=== PATIENT | male | born 1980 | race Caucasian/White ===

== ENCOUNTER 2017-03-29 00:46 | Emergency (ER) | payer SELFPAY ==
[~2017-03-29] VITALS: Ht 190.5 cm; Wt 154.5 kg
[~2017-03-29 00:46] MED LIST: HYDR-569 PO
[2017-03-29 00:53] VITALS: BP 175/111
[2017-03-29] MEDS ORDERED: HYDROcodone/acetaminophen 10/325mg tab PO ONE (01:20)
[2017-03-29] MEDS ORDERED: penicillin V potassium 500mg tablet PO ONE (01:20)
[2017-03-29] MEDS ORDERED: ibuprofen tablet 400 MG TABLET PO ONE (01:20)
[2017-03-29] MEDS ORDERED: IBUP-1984 PO (01:36)
[2017-03-29] MEDS ORDERED: PENI500T2 PO (01:36)
[2017-03-29] MEDS ORDERED: HYDR-565 PO (01:36)
== END 2017-03-29 01:46 | disposition home or self-care (01) ==
LOC: ER 00:47
DX: K08.89 Other specified disorders of teeth and supporting structures (principal); F12.10 Cannabis abuse, uncomplicated; F17.200 Nicotine dependence, unspecified, uncomplicated; Z86.14 Personal history of Methicillin resistant Staphylococcus aureus infection
CPT/HCPCS: 99284

== ENCOUNTER 2017-05-14 09:01 | Emergency (ER) | payer MEDICAID, OTHER ==
[~2017-05-14] VITALS: Ht 190.5 cm; Wt 151.0 kg
[2017-05-14] MEDS ORDERED: CLIN300C53 PO (09:40)
[2017-05-14] MEDS ORDERED: IBUP-1984 PO (09:40)
[2017-05-14 09:49] VITALS: BP 154/91
== END 2017-05-14 09:50 | disposition home or self-care (01) ==
LOC: ER 09:02
DX: K08.89 Other specified disorders of teeth and supporting structures (principal); F12.90 Cannabis use, unspecified, uncomplicated
CPT/HCPCS: 99283

== ENCOUNTER 2021-01-22 18:55 | Emergency (ER) | payer MEDICAID, OTHER ==
[~2021-01-22] VITALS: Ht 190.5 cm; Wt 151.0 kg
[~2021-01-22 18:55] MED LIST changes: +HYDR-4383 PO; -HYDR-569 PO
[2021-01-22 19:58] VITALS: BP 121/65
[2021-01-23] MEDS ORDERED: SUMAtriptan succ. 6 MG/0.5ml vial SQ ONE (01:05)
[2021-01-23] MEDS ORDERED: amox tr/potassium clavulanate 875/125mg TAB PO ONE (01:05)
[2021-01-23] MEDS ORDERED: orphenadrine citrate 60mg/2ml inj. IM ONE (01:05)
[2021-01-23] MEDS ORDERED: TRAM50TA2 PO (03:13)
[2021-01-23] MEDS ORDERED: NAPR-56 PO (03:13)
== END 2021-01-23 03:25 | disposition home or self-care (01) ==
LOC: ER 18:55
DX: K02.9 Dental caries, unspecified (principal); R51.9 Headache, unspecified; F12.90 Cannabis use, unspecified, uncomplicated; Z86.14 Personal history of Methicillin resistant Staphylococcus aureus infection; Z72.89 Other problems related to lifestyle; Z79.899 Other long term (current) drug therapy
CPT/HCPCS: 70450; 72125; 96372; 99285; J2360; J3030

== ENCOUNTER 2021-08-07 06:41 | Emergency (ER) | payer MEDICAID ==
[~2021-08-07] VITALS: Ht 190.5 cm; Wt 154.0 kg
[2021-08-07 06:45] VITALS: BP 154/86
== END 2021-08-07 08:49 | disposition home or self-care (01) ==
LOC: ER 06:41
DX: R05.9 Cough, unspecified (principal); R51.9 Headache, unspecified; J02.9 Acute pharyngitis, unspecified; M79.10 Myalgia, unspecified site; F12.10 Cannabis abuse, uncomplicated; Z86.14 Personal history of Methicillin resistant Staphylococcus aureus infection
CPT/HCPCS: 99283

== ENCOUNTER 2021-12-15 08:24 | Emergency (ER) | payer MEDICAID ==
[~2021-12-15] VITALS: Ht 190.5 cm; Wt 156.8 kg
[2021-12-15] MEDS ORDERED: dutasteride 0.5 MG capsule PO STA (08:57)
[2021-12-15] MEDS ORDERED: HYDROcodone/acetaminophen 5mg/325mg tablet PO ONE (09:00)
[2021-12-15] MEDS ORDERED: terbutaline 1 mg/ml inj SQ STA ×3 (09:14→10:07)
[2021-12-15] MEDS ORDERED: nitroGLYCERIN 0.4mg SUBLingual tab SL PRN ×2 (09:15→10:10)
[2021-12-15] MEDS: phenylephrine 10mg/ml inj. SQ PRN ×2 (11:06→12:54)
[2021-12-15] MEDS ORDERED: LIDOcaine/PRILOcaine 5gm cream TP ONE (11:45)
[2021-12-15] MEDS ORDERED: phenylephrine 10mg/ml inj. SQ PRN (12:30)
[2021-12-15] MEDS ORDERED: LIDOcaine 1% 30ml preserv. free vial IJ ONE (12:30)
[2021-12-15] MEDS ORDERED: phenylephrine inj 10 MG in NS 100ml Intracavernous IC ONE (12:35)
[2021-12-15] MEDS ORDERED: HYDR-3965 PO (13:37)
[2021-12-15 13:47] VITALS: BP 132/84
== END 2021-12-15 13:49 | disposition home or self-care (01) ==
LOC: ER 08:24
DX: N48.30 Priapism, unspecified (principal); F12.10 Cannabis abuse, uncomplicated; Z86.14 Personal history of Methicillin resistant Staphylococcus aureus infection; Z79.899 Other long term (current) drug therapy
CPT/HCPCS: 54220; 96372; 99284; J2370; J3105